=== PATIENT | male | born 1965 ===

== ENCOUNTER 2017-11-29 13:38 | Day surgery (SDC) | payer OTHER ==
[~2017-11-29] VITALS: Ht 182.9 cm; Wt 112.8 kg
[2017-11-29] MEDS ORDERED: ABAT250V (14:40)
[2017-11-29] MEDS ORDERED: LISI5 (14:40)
== END 2017-11-29 16:05 | disposition home or self-care (01) ==
LOC: ORSCSDS 13:38
PROVIDERS: Surgery
PROC: 0DBK8ZX Excision of Ascending Colon, Via Natural or Artificial Opening Endoscopic, Diagnostic (ICD-10-PCS; principal; 2017-11-29 15:00)
DX: Z12.11 Encounter for screening for malignant neoplasm of colon (principal); D12.2 Benign neoplasm of ascending colon; Z86.010 Personal history of colon polyps; I10 Essential (primary) hypertension; E66.9 Obesity, unspecified; Z68.34 Body mass index [BMI] 34.0-34.9, adult; Z79.899 Other long term (current) drug therapy
CPT/HCPCS: 88305; J7120

== ENCOUNTER 2023-11-02 06:48 | Day surgery (SDC) | payer OTHER ==
[~2023-11-02] VITALS: Ht 182.9 cm; Wt 120.7 kg
[~2023-11-02 06:48] MED LIST: ABAT250V; LISI5; TADA10TA; ZINC50 M3 PO
[2023-11-02] MEDS ORDERED: propofoL 50 ML IV ONE (07:08)
[2023-11-02] MEDS ORDERED: Lactated Ringer's 1,000 ML IV ONE ×2 (07:08→07:47)
[2023-11-02 09:06] VITALS: BP 107/82
== END 2023-11-02 09:06 | disposition home or self-care (01) ==
LOC: ORSCSDS 06:48
PROVIDERS: Surgery
PROC: 0DBL8ZX Excision of Transverse Colon, Via Natural or Artificial Opening Endoscopic, Diagnostic (ICD-10-PCS; principal; 2023-11-02 08:00)
DX: Z12.11 Encounter for screening for malignant neoplasm of colon (principal); Z86.010 Personal history of colon polyps; D12.3 Benign neoplasm of transverse colon; I10 Essential (primary) hypertension; E78.2 Mixed hyperlipidemia; Z79.899 Other long term (current) drug therapy
CPT/HCPCS: 88305; J2704; J7120